=== PATIENT | female | born 1990 | race Caucasian/White ===

== ENCOUNTER → 2020-08-31 | Outpatient (CLI) | payer BC, OTHER ==
[~2020-08-31] MED LIST: COLACE 100MG C100 MG PO; IBUPROFEN600 MG PO; LORTAB 5-325 M1 EACH PO; PRENATAL TABLE1 EAC1 PO; TYLENOL 500 MG500 MG PO
== END ==
LOC: LAB 02:16
DX: E03.9 Hypothyroidism, unspecified (principal)
CPT/HCPCS: 84439; 84443